=== PATIENT | male | born 1990 | race Caucasian/White ===

== ENCOUNTER → 2022-08-17 10:52 | Outpatient (BNVA) | payer OTHER, SELFPAY | PROVIDERS: Visit Provider Internal Medicine | DX: S29.012A Strain of muscle and tendon of back wall of thorax, initial encounter (principal); X50.0XXA Overexertion from strenuous movement or load, initial encounter | CPT/HCPCS: 99202 ==

== ENCOUNTER → 2024-12-14 09:17 | Outpatient (BNVA) | payer OTHER, SELFPAY | PROVIDERS: Visit Provider Emergency Medicine | DX: M24.811 Other specific joint derangements of right shoulder, not elsewhere classified (principal) | CPT/HCPCS: 73030; 99203 ==

== ENCOUNTER → 2024-12-19 13:24 | Outpatient (BNVA) | payer OTHER, SELFPAY | PROVIDERS: Visit Provider Emergency Medicine | DX: M24.811 Other specific joint derangements of right shoulder, not elsewhere classified (principal) | CPT/HCPCS: 99214 ==

== ENCOUNTER 2025-01-07 08:56 | Outpatient (REF) | payer OTHER, BC, SELFPAY ==
--- NOTE | ~2025-01-07 | MR_ITS ---
EXAMINATION: MR SHOULDER WITHOUT CONTRAST, RIGHT CLINICAL INFORMATION: Shoulder pain COMPARISON: X-ray 12/14/2024 TECHNIQUE: MRI of the shoulder without contrast was performed on a high-field scanner. FINDINGS: ROTATOR CUFF: Supraspinatus: Mild tendinosis Infraspinatus: Mild-moderate tendinosis Teres minor: Intact. Subscapularis: Mild distal tendinosis with possible small partial tear.. No muscle atrophy or fatty infiltration. BICEPS: Intact CORACOACROMIAL ARCH: The undersurface of the acromion is flat with no subacromial spur. Mild acromioclavicular arthritis. Trace subacromial subdeltoid bursal fluid. LABRUM/CAPSULE: Mild T2 signal in the superior labrum; subjacent 0.5 cm para labral cyst. Findings raise concern for possible undisplaced labral tear in this region. GLENOHUMERAL JOINT/MARROW: No fracture. No aggressive marrow replacing lesion. No high-grade chondral loss. No significant joint effusion. MR/MR shoulder RT wo con IMPRESSION: * Mild supraspinatus tendinosis. Mild-moderate infraspinatus tendinosis. * Mild distal subscapularis tendinosis with possible small partial tear. * 0.5 cm para labral cyst associated with the superior labrum, raising concern for possible undisplaced superior labral tear.. Electronically signed by: Fuentes Kim MD 01/08/2025 08:03 AM [facility]
--- OUTSIDE RECORDS SUMMARY | 2025-01-07 09:02 | XMS_ITS | Clinical Summary ---
Author Organization [facility] [address] [facility] Address [address] [place] [address] Phone Care Team Providers Care Guest Experience Specialist Name Role Phone Hu Ramsay MD Primary Care Provider [phone] Allergies No known active allergies Medications ibuprofen (ADVIL,MOTRIN) 600 mg tablet TAKE 1 TAB WITHIN THE FIRST 2 HRS AFTER SURGERY, THEN TAKE 1 TABLET EVERY 6 HRS NEEDED FOR PAIN 04/16/2023 Active losartan (Cozaar) 50 mg tablet Take 1 tablet (50 mg total) by mouth 1 (one) time each day. 90 each 1 10/16/2024 Active Active Problems Problem Noted Date Diagnosed Date Neoplasm of uncertain behavior of skin Overview (10/16/2024): Lesion removed Demos approx 2017. Precancerous . 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, left 04/23/2020 Obesity (BMI 30.0-34.9) 12/20/2007 Encounters Date Type Department Care Team Description 10/16/2024 11:30 AM EDT Office Visit Adult Medicine - [place] [address] [place] [address] Hu Ramsay MD Routine general medical examination at a health care facility (Primary Dx); Hypertension, unspecified type; Screening, lipid; Need for zygweekpyz-sbyeznw-pr rtussis (Tdap) vaccine; Encounter for hepatitis C screening test for low risk patient; Neoplasm of uncertain behavior of skin; Elevated serum creatinine from Last 3 Months Immunizations Immunization Administration Dates Next Due Meningococcal MCV4P 12/20/2007 Td Tetanus diptheria (Tdvax) 7yo and older 08/04 Tdap Tetanus diptheria acell ular pertussis (Boostrix; Adacel) 7yo and older 10/16/2024,05/26/2011 Surgical History Surgery Date Site/Laterality Comments OTHER SURGICAL HISTORY PROCEDURE: DENIES PREVIOUS SURGERY Medical History Medical History Date Comments Varicella without mention of complication 1995 DX:Varicella without mention of complication Herpes zoster without mentio n of complication DX:Herpes zoster without men tion of complication Contact dermatitis and other eczema, due to unspecified cause DX:Contact dermatitis and ot her eczema, due to unspecified cause Foreign body in cornea 03/29/06 DX:Foreig n body in cornea; COMMENT: LEFT Family History Medical History Relation Name Comments Other cancer Maternal Grandfather Hypertension Mother Diabetes Paternal Grandmother Relation Name Status Comments Father Alive 1964 Maternal Grandfather Mother Alive 1963 Paternal Grandmother Sister 1 Alive 1985, latasha Sister 2 Alive 1985, pati Sister 3 Alive 1994, bjorn Social History Tobacco Use Types Packs/Day Years Used Date Smoking Tobacco: Never Smokeless Tobacco: Never Tobacco Cessation:Counseling Given: Not Answered Alcohol Use Standard Drinks/Week Comments Never 0 (1 standard drink = 0.6 oz pur e alcohol) Housing Instability Answer Date Recorde d Are you worried that in the next 2 months you may not have stable housing? No 06/07/2024 Food Access & Nutrition Answer Date Rec orded Do you have access to a vari ety of food including fruits and vegetables? Yes 06/07/2024 Access to Healthcare Answer Date Record ed Within the last 3 months, ho w many times did you visit the emergency department for your medical care? 0 06/07/2024 Health Literacy Answer Date Recorded How often do you need to hav e someone help you when you read instructions, pamphlets, or other written material from your doctor or pharmacy? Never 06/07/2024 Caregiver: How often do you need to have someone help you when you read instructions, pamphlets, or other written material from your doctor or pharmacy? Not on file 06/07/2024 Financial Risk Answer Date Recorded How hard is it for you to pa y for the very basics like food, housing, medical care, and air conditioning / heating? Not very hard 06/07/2024 Transportation Answer Date Recorded Has the lack of transportati on kept you from meetings, work, or from getting things needed for daily living? No Has the lack of transportati on kept you from medical appointments or from getting medications? No 06/07/2024 Social Isolation Answer Date Recorded How often do you feel lonely or isolated from th ose around you? Never 06/07/2024 Food Risk Answer Date Recorded Within the past 12 months we worried whether our food would run out before we got money to buy more. Never true 06/07/2024 Within the past 12 months th e food we bought just didn't last and we didn't have money to get more. Never true 06/07/2024 Dependent Care Answer Date Recorded Do you need help finding or paying for care for your loved ones. For example, child development consultant or elderly care for an older adult? No 06/07/2024 Education Answer Date Recorded Do you think completing more education or training, like finishing a GED, going to college, or learning a trade, would be helpful for you? No 06/07/2024 Employment and Income Answer Date Recor ded During the last four weeks, have you been actively looking for work? No 06/07/2024 Living Situation Answer Date Recorded What is your living situation? Unrecognized valu e 06/07/2024 Sex and Gender Information Value Date Recorded Sex Assigned at Not on file Legal Sex Male 2:49 AM EST Gender Identity Not on file Sexual Orientation Not on file Obstetrics History Last Filed Vital Signs Vital Sign Reading Time Taken Comments Blood Pressure 130/83 10/16/2024 11:28 AM EDT Pulse 98 10/16/2024 11:28 AM EDT Temperature 36.4 C (97.6 F) 10/16/2024 11:28 AM EDT Respiratory Rate 16 04/05/2024 8:55 AM EST Oxygen Saturation 98% 04/05/2024 8:55 AM EST Inhaled Oxygen Concentration - - Weight 103 kg (227 lb) 10/16/2024 11:28 AM EDT Height 177.8 cm (5' 10 ) 10/16/2024 11:28 AM EDT Body Mass Index 32.57 10/16/2024 11:28 AM EDT Plan of Treatment Health Maintenance Due Date Last Done Comments Hepatitis B Vaccines (1 of 3 - 19+ 3-dose series) 08/03/2007 HPV Vaccines (1 - 3-dose SCD M series) 08/03/2015 HIV Screening 02/08/2022 Depression Screening 03/08/2024 COVID-19 Vaccine (1 - 2023-2 5 season) 2024 Influenza Vaccine (#1) 2024 Social Influencers of Health Screening 06/07/2025 06/07/2024 Hypertension/CHF/CAD Annual BMP Blood Test 10/16/2025 10/16/2024 Cholesterol Screening (Lipid Panel) 10/16/2029 10/16/2024 DTaP,Tdap,and Td Vaccines (4 - Td or Tdap) 10/16/2034 10/16/2024, 05/26/2011, 08/04/2000 RSV Immunization Adult Patients (1 - 1-dose 75+ series) 08/03/2063 Meningococcal ACWY Vaccine Aged Out 12/20/2007 N o longer eligible based on patient's age to complete this topic Hepatitis C Screening Completed 10/16/2024 HIB Vaccines Aged Out No longer eligi ble based on patient's age to complete this topic Hepatitis A Vaccines Aged Out No long er eligible based on patient's age to complete this topic IPV Vaccines Aged Out No longer eligi ble based on patient's age to complete this topic MMR Vaccines Aged Out No longer eligi ble based on patient's age to complete this topic Meningococcal B Vaccine Aged Out No l onger eligible based on patient's age to complete this topic Pneumococcal Vaccine: Pediatrics (0 to 5 Years) and At-Risk Patients (6 to 49 Years) Aged Out No longer eligible b ased on patient's age to complete this topic RSV Immunization Patients Under 20 months Aged Out No longer eligible b ased on patient's age to complete this topic Varicella Vaccines Aged Out No longer eligible based on patient's age to complete this topic Procedures Procedure Name Priority Date/Time Associated Diagnosis Comments CBC WITH AUTO DIFFERENTIAL Routine 10/16/2024 12:02 PM EDT Hypertension, unspecified type HEPATITIS C ANTIBODY Routine 10/16/2024 12:02 PM EDT Encounter for hepatitis C screening test for low risk patient LIPID PANEL WITH REFLEX TO DIRECT LDL Routine 10/16/2024 12:02 PM EDT Screening, lipid COMPREHENSIVE METABOLIC PANEL Routine 10/16/2024 12:02 PM EDT Hypertension, unspecified type CBC AND DIFFERENTIAL Routine 10/16/2024 12:02 PM EDT Hypertension, unspecified type from Last 3 Months Results * Hepatitis C antibody (10/16/2024 12:02 PM EDT) Pathologist [facility] [place] Hepatitis C Antibody Negative Negative LAB CHEMISTRY METHOD 10/16/2024 5:08 PM EDT [facility] Blood Venous blood specimen / Unknown Venipuncture / Unknown 10/16/2024 12:02 PM EDT 10/16/2024 12:02 PM EDT C Allen Ramsay MD LAB BLOOD ORDERABLES Final Res ult [facility] [address] [place] [address], [place] [phone] * (ABNORMAL) Lipid panel with reflex to direct LDL (10/16/2024 12:02 PM EDT) [facility] Cholesterol 165 0 - 200 mg/dL LAB CHEMISTRY METHOD 10/16/2024 3:24 PM EDT [facility] Triglycerides 268(H) 0 - 150 mg/dL LAB CHEMISTRY METHOD 10/16/2024 3:24 PM EDT [facility] HDL 38(L) >=40 mg/dL LAB CHEMISTRY METHOD 10/16/2024 3:24 PM EDT [facility] LDL Calculated 73 0 - 100 mg/dL LAB CHEMISTRY METHOD 10/16/2024 3:24 PM EDT [facility] Comment:Estimated LDL Calcul ated using equation: Total cholesterol - HDL cholesterol - (Triglycerides/5) VLDL Cholesterol Adelso 53.6 mg/dL LAB CHEMISTRY METHOD 10/16/2024 3:24 PM EDT [facility] Non HDL Chol. (LDL+VLDL) 127 <145 mg/dL LAB CHEMISTRY METHOD 10/16/2024 3:24 PM EDT [facility] Chol/HDL Ratio 4.3 0.0 - 4.4 LAB CHEMISTRY METHOD 10/16/2024 3:24 PM EDT [facility] Blood Venous blood specimen / Unknown Venipuncture / Unknown 10/16/2024 12:02 PM EDT 10/16/2024 12:[address] [facility] Allen Ramsay MD LAB BLOOD ORDERABLES Final Res ult [facility] [address] [place] [address], [place] [phone] * (ABNORMAL) CBC auto differential (10/16/2024 12:02 PM EDT) WBC 7.1 4.8 - 10.8 K/mcL LAB HEMETOLOGY METHOD 10/16/2024 1:58 PM EDT [facility] RBC 5.10 4.50 - 5.50 M/mcL LAB HEMETOLOGY METHOD 10/16/2024 1:58 PM EDT [facility] Hemoglobin 14.1 13.5 - 17.5 g/dL LAB HEMETOLOGY METHOD 10/16/2024 1:58 PM EDT [facility] Hematocrit 40.2(L) 42.0 - 54.0 % LAB HEMETOLOGY METHOD 10/16/2024 1:58 PM EDT [facility] MCV 79.6 79.0 - 98.0 FL LAB HEMETOLOGY METHOD 10/16/2024 1:58 PM EDT [facility] MCH 27.9 27.0 - 32.0 pcg LAB [facility] M[facility]C 35.1 32.0 - 37.0 g/dL LAB HEMETOLOGY METHOD 10/16/2024 1:58 PM [facility] RDW 12.4 11.0 - 15.0 % LAB HEMETOLOGY METHOD 10/16/2024 1:58 PM [facility] Platelets 252 130 - 400 K/mcL LAB HEMETOLOGY METHOD 10/16/2024 1:58 PM [facility] MPV 9.3 7.0 - 11.0 FL LAB HEMETOLOGY METHOD 10/16/2024 1:58 PM [facility] NRBC 0.0 <1.0 % LAB HEMETOLOGY METHOD 10/16/2024 1:58 PM [facility] NRBC Absolute 0.00 <0.10 K/mcL LAB HEMETOLOGY METHOD 10/16/2024 1:58 PM [facility] Neutrophils Relative 66.1 % LAB HEMETOLOGY METHOD 10/16/2024 1:58 PM [facility] Lymphocytes Relative 24.2 % LAB HEMETOLOGY METHOD 10/16/2024 1:58 PM [facility] Monocytes Relative 7.8 % LAB HEMETOLOGY METHOD 10/16/2024 1:58 PM [facility] Eosinophils Relative 1.3 % LAB HEMETOLOGY METHOD 10/16/2024 1:58 PM [facility] Basophils Relative 0.3 % LAB HEMETOLOGY METHOD 10/16/2024 1:58 PM [facility] Immature Granulocytes Relative 0.3 % LAB HEMETOLOGY METHOD 10/16/2024 1:58 PM [facility] Neutrophils Absolute 4.72 1.50 - 7.00 K/mcL LAB HEMETOLOGY METHOD 10/16/2024 1:58 PM EDT [facility] Lymphocytes Absolute 1.73 1.00 - 5.00 K/mcL LAB HEMETOLOGY METHOD 10/16/2024 1:58 PM EDT [facility] Monocytes Absolute 0.56 0.20 - 1.00 K/mcL LAB HEMETOLOGY METHOD 10/16/2024 1:58 PM EDT [facility] Eosinophils Absolute 0.09 0.00 - 0.50 K/mcL LAB HEMETOLOGY METHOD 10/16/2024 1:58 PM EDT [facility] Basophils Absolute 0.02 0.00 - 0.20 K/mcL LAB HEMETOLOGY METHOD 10/16/2024 1:58 PM EDT [facility] Immature Granulocytes Absolute 0.02 0.00 - 0.03 K/mcL LAB HEMETOLOGY METHOD 10/16/2024 1:58 PM EDT [facility] Blood Venous blood specimen / Unknown Venipuncture / Unknown 10/16/2024 12:02 PM EDT 10/16/2024 12:02 PM EDT C Allen Ramsay MD LAB BLOOD ORDERABLES Final Res ult [facility] [address] [place] [address], * (ABNORMAL) Comprehensive metabolic panel (10/16/2024 12:02 PM EDT) Sodium 140 133 - 145 mmol/L LAB CHEMISTRY METHOD 10/16/2024 3:24 PM EDT [facility] Potassium 3.9 3.5 - 5.5 mmol/L LAB CHEMISTRY METHOD 10/16/2024 3:24 PM [facility] Chloride 110 96 - 110 mmol/L LAB CHEMISTRY METHOD 10/16/2024 3:24 PM EDT [facility] CO2 26 21 - 32 mmol/L LAB CHEMISTRY METHOD 10/16/2024 3:24 PM [facility] Anion Gap 4 3 - 11 LAB CHEMISTRY METHOD 10/16/2024 3:24 PM [facility] Glucose 90 70 - 100 mg/dL LAB CHEMISTRY METHOD 10/16/2024 3:24 PM [facility] BUN 18 5 - 25 mg/dL LAB CHEMISTRY METHOD 10/16/2024 3:24 PM [facility] Creatinine 1.41(H) 0.70 - 1.30 mg/dL LAB CHEMISTRY METHOD 10/16/2024 3:24 PM [facility] eGFR 66 >=60 mL/min/1. 73m2 LAB CHEMISTRY METHOD 10/16/2024 3:24 PM [facility] Comment:Calculation based on the Chronic Kidney Disease Epidemiology Collaboration (CKD-EPI) equation refit without adjustment for race. BUN/Creatinine Ratio 12.8 LAB CHEMISTRY METHOD 10/16/2024 3:24 PM [facility] Calcium 9.1 8.5 - 10.5 mg/dL LAB CHEMISTRY METHOD 10/16/2024 3:24 PM [facility] AST (SGOT) 26 10 - 42 unit/L LAB CHEMISTRY METHOD 10/16/2024 3:24 PM [facility] ALT (SGPT) 34 10 - 60 unit/L LAB CHEMISTRY METHOD 10/16/2024 3:24 PM [facility] Alkaline Phosphatase 75 42 - 121 unit/L LAB CHEMISTRY METHOD 10/16/2024 3:24 PM [facility] Total Protein 8.0 6.0 - 8.0 g/dL LAB CHEMISTRY METHOD 10/16/2024 3:24 PM [facility] Albumin 4.4 3.2 - 5.0 g/dL LAB CHEMISTRY METHOD 10/16/2024 3:24 PM [facility] Total Bilirubin 0.8 0.0 - 1.4 mg/dL LAB CHEMISTRY METHOD 10/16/2024 3:24 PM EDT [facility] Blood Venous blood specimen / Unknown Venipuncture / Unknown 10/16/2024 12:02 PM EDT 10/16/2024 12:02 PM EDT C Allen Ramsay MD LAB BLOOD ORDERABLES Final Res ult [facility] [address] [place] [address], [place] [phone] from Last 3 Months Insurance [facility] Care Teams Guest Experience Specialist Relationship Specialty Start Date End Date Hu Ramsay MD [address] [place] [id number] PCP - General Internal Medicine 07/03/20
--- OUTSIDE RECORDS SUMMARY | 2025-01-07 09:02 | XMS_ITS ---
Author Name [facility] Organization Unknown Care Team Organization Name Specialty Phone Email Start Date End Da te [facility] Ramsay Primary Care 07/13/2022 10/25/2023 [facility] Termed, PROVIDER Primary Care 01/13/202210/06
--- OUTSIDE RECORDS SUMMARY | 2025-01-07 09:02 | XMS_ITS | Clinical Summary ---
Author Organization [facility] Address [address] [place] [address] Care Team Providers Care Armature Winder Helper Repair Name Role Phone Pcp, No Primary Care Provider Unavailabl e Allergies No known active allergies Medications No known medications Social History Tobacco Use Types Packs/Day Years Used Date Smoking Tobacco: Never Smokeless Tobacco: Never Sex and Gender Information Value Date Recorded Sex Assigned at Not on file Legal Sex Male 5:30 PM EDT Gender Identity Not on file Sexual Orientation Not on file Last Filed Vital Signs Vital Sign Reading Time Taken Comments Blood Pressure 138/93 11/30/2019 6:07 PM EDT Pulse 78 11/30/2019 6:07 PM EDT Temperature 37.1 C (98.7 F) 11/30/2019 6:07 PM EDT Respiratory Rate - - Oxygen Saturation 99% 11/30/2019 6:07 PM EDT Inhaled Oxygen Concentration - - Weight 95.3 kg (210 lb) 11/30/2019 6:07 PM EDT Height 177.8 cm (5' 10 ) 11/30/2019 6:07 PM EDT Body Mass Index 30.13 11/30/2019 6:07 PM EDT Plan of Treatment Health Maintenance Due Date Last Done Comments Hepatitis C Virus Screening 1988 HIV Screening 2001 DTaP/Tdap/Td Vaccines (1 - Tdap) 08/03/2007 Hepatitis B Vaccines (1 of 3 - 19+ 3-dose series) 08/03/2007 Influenza Vaccine 10/06/2024 COVID-19 Vaccine ( - 2023-2 5 season) 2024 HPV Vaccines (No Doses Required) Completed Pneumococcal Vaccine: Pediat aric (0-5 Years) and At-Risk Patients (6 to 49 Years) Aged Out No longer eligible b ased on patient's age to complete this topic Insurance [facility] Care Teams Armature Winder Helper Repair Relationship Specialty Start Date End Date Pcp, No PCP - General General Medicine 11/16/19
== END 2025-01-07 08:57 | disposition home or self-care (01) ==
LOC: HO.MRI 08:56
PROVIDERS: Visit Provider Emergency Medicine
DX: M24.811 Other specific joint derangements of right shoulder, not elsewhere classified (principal)
CPT/HCPCS: 73221

== ENCOUNTER → 2025-01-07 09:04 | Outpatient (BNV) | payer OTHER, SELFPAY | PROVIDERS: Visit Provider Radiology Diagnostic Ultrasound | DX: M75.21 Bicipital tendinitis, right shoulder (principal) | CPT/HCPCS: 73221 ==

== ENCOUNTER 2025-01-11 09:09 | Outpatient (AMB) | payer OTHER, SELFPAY ==
--- NOTE | 2025-01-11 09:23 | A.OFFVIS_ITS ---
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 This is due to a work related injury from 12/13/2024. 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 He went to prevent a fall and was bumped into be another nurse and also hit the stretcher with the right shoulder. He had an immediate onset of pain int he right shoulder. He was seen at the [facility] the day after injury who ordered physical therapy, which is being done at [facility]. His pain is felt only with lateral raises and with other various movments. He has been guarding his shoulder by keeping is stationary. Takes ibuprofen PRN for pain which does help. 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 This is due to a work related injury from 12/13/2024. 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 He went to prevent a fall and was bumped into be another nurse and also hit the stretcher with the right shoulder. He had an immediate onset of pain int he right shoulder. He was seen at the [facility] the day after injury who ordered physical therapy, which is being done at [facility]. His pain is felt only with lateral raises and with other various movments. He has been guarding his shoulder by keeping is stationary. Takes ibuprofen PRN for pain which does help. The pain has been improving but it is still not normal. He has pain when he abducts the right shoulder. 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 His motion is grossly intact. He has about 45 degrees of external rotation at 0 and can abduct to 90. One hundred and 30 overhead abduction with pain in the mid arc of abduction. 150 degrees of forward flexion. Negative belly press. Negative lift-off. Positive Lamb and negative Neer. 4+/5 empty can Vital Signs: BMI result Body Mass Index 32.3 Results Reviewed Results Reviewed: I personally reviewed the MR images. Mild supraspinatus tendinosis. Mild-moderate infraspinatus tendinosis. * Mild distal subscapularis tendinosis with possible small partial tear. * 0.5 cm para labral cyst associated with the superior labrum, raising concern for possible undisplaced superior labral tear.. 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 He should be continuing physical therapy and NSAIDs and avoid overhead lifting. His MRI and exam are consistent with rotator cuff tendinosis/tendonitis. There is a small paralabral cyst which does not appear to be relevant given his presentation. At this time I recommend out of work. He will follow up with me in 6 weeks. At that time I hope to resume light duty. Orders: Orders PT Evaluation and Treatment Today M67.819 - Other specified disorders of synovium and tendon, unspecified shoulder Coding Level of Care Code New Pt Level 3 (12720) Diagnoses Tendinosis of rotator cuff M67.819
[2025-01-11 09:30] VITALS: BMI 32.3
--- OUTSIDE RECORDS SUMMARY | 2025-01-11 10:04 | XMS_ITS | Clinical Summary ---
Author Organization [facility] Address [address] [place] [address] Care Team Providers Care Butt Sawyer Name Role Phone Pcp, No Primary Care [...] complete this topic Insurance [facility] Care Teams Butt Sawyer Relationship Specialty Start Date End Date Pcp, No PCP - General General Medicine 11/16/19
--- OUTSIDE RECORDS SUMMARY | 2025-01-11 10:04 | XMS_ITS | Clinical Summary ---
Author Organization [facility] 230 [facility] Address [address] [place] [address] Phone Care Team Providers Care Supervisor Wheel Shop Name Role Phone Hu Ramsay MD Primary Care Provider Allergies No known active allergies Medications ibuprofen [...] AM EDT Office Visit Adult Medicine - [facility] [address] [place] [address] Hu Ramsay MD Routine general medical examination at a health care facility (Primary Dx); Hypertension, unspecified type; Screening, lipid; Need for qyerarryrt-eyuipur-zb rtussis (Tdap) vaccine; Encounter for hepatitis C [...] care for your loved ones. For example, manager child or elderly care for an older adult? [...] C antibody (10/16/2024 12:02 PM EDT) Pathologist [facility] Hepatitis C Antibody Negative Negative LAB CHEMISTRY METHOD 10/16/2024 5:08 PM EDT [facility] Blood Venous blood specimen / Unknown Venipuncture / Unknown 10/16/2024 12:02 PM EDT 10/16/2024 12:02 PM EDT C Allen Ramsay MD LAB BLOOD ORDERABLES Final Res ult [facility] [address] [place] [address], [place] [phone] * (ABNORMAL) Lipid panel with reflex to direct LDL (10/16/2024 12:02 PM EDT) [facility] Cholesterol 165 0 - 200 mg/dL LAB CHEMISTRY METHOD 10/16/2024 3:24 PM EDT [facility] Triglycerides 268(H) 0 - 150 mg/dL LAB CHEMISTRY METHOD 10/16/2024 3:24 PM EDT [facility] HDL 38(L) >=40 mg/dL LAB CHEMISTRY METHOD 10/16/2024 3:24 PM EDT [facility] LDL Calculated 73 0 - 100 mg/dL LAB CHEMISTRY METHOD 10/16/2024 3:24 PM EDT [facility] Comment:Estimated LDL Calcul ated using equation: Total cholesterol - HDL cholesterol - (Triglycerides/5) VLDL Cholesterol Adelso 53.6 mg/dL LAB CHEMISTRY METHOD 10/16/2024 3:24 PM EDT [facility] Non HDL Chol. (LDL+VLDL) 127 <145 mg/dL LAB CHEMISTRY METHOD 10/16/2024 3:24 PM EDT [facility] Chol/HDL Ratio 4.3 0.0 - 4.4 LAB CHEMISTRY METHOD 10/16/2024 3:24 PM EDT [facility] Blood Venous blood specimen / Unknown Venipuncture / Unknown 10/16/2024 12:02 PM EDT 10/16/2024 12:02 PM EDT [facility] [place] LAB BLOOD ORDERABLES Final Res ult [facility] [address] [place] [address], [place] [phone] * (ABNORMAL) CBC auto differential (10/16/2024 12:02 PM EDT) WBC 7.1 4.8 - 10.8 K/mcL LAB HEMETOLOGY METHOD 10/16/2024 1:58 PM EDT [facility] RBC 5.10 4.50 - 5.50 M/mcL LAB HEMETOLOGY METHOD 10/16/2024 1:58 PM EDT [facility] Hemoglobin 14.1 13.5 - 17.5 g/dL LAB HEMETOLOGY METHOD 10/16/2024 1:58 PM EDT [facility] Hematocrit 40.2(L) 42.0 - 54.0 % LAB HEMETOLOGY METHOD 10/16/2024 1:58 PM EDT [facility] MCV 79.6 79.0 - 98.0 FL LAB HEMETOLOGY METHOD 10/16/2024 1:58 PM EDT [facility] MCH 27.9 27.0 - 32.0 pcg LAB HEMETOLOGY METHOD 10/[facility]24 [facility] MCHC 35.1 32.0 - 37.0 g/dL LAB HEMETOLOGY METHOD 10/16/2024 1:58 PM [facility] RDW 12.4 11.0 - 15.0 % LAB HEMETOLOGY METHOD 10/16/2024 1:58 PM [facility] Platelets 252 130 - 400 K/mcL LAB HEMETOLOGY METHOD 10/16/2024 1:58 PM [facility] MPV 9.3 7.0 - 11.0 FL LAB HEMETOLOGY METHOD 10/16/2024 1:58 PM [facility] NRBC 0.0 <1.0 % LAB HEMETOLOGY METHOD 10/16/2024 1:58 PM [facility] NRBC Absolute 0.00 <0.10 K/mcL LAB HEMETOLOGY METHOD 10/16/2024 1:58 PM [facility] Neutrophils Relative 66.1 % LAB HEMETOLOGY METHOD 10/16/2024 1:58 PM [facility] Lymphocytes Relative 24.2 % LAB HEMETOLOGY METHOD 10/16/2024 1:58 PM [facility] Monocytes Relative 7.8 % LAB HEMETOLOGY METHOD 10/16/2024 1:58 PM [facility] Eosinophils Relative 1.3 % LAB HEMETOLOGY METHOD 10/16/2024 1:58 PM [facility] Basophils Relative 0.3 % LAB HEMETOLOGY METHOD 10/16/2024 1:58 PM [facility] Immature Granulocytes Relative 0.3 % LAB HEMETOLOGY METHOD 10/16/2024 1:58 PM [facility] Neutrophils Absolute 4.72 1.50 - 7.00 K/mcL LAB HEMETOLOGY METHOD 10/16/2024 1:58 PM EDT [facility] Lymphocytes Absolute 1.73 1.00 - 5.00 K/mcL LAB HEMETOLOGY METHOD 10/16/2024 1:58 PM EDT [facility] Monocytes Absolute 0.56 0.20 - 1.00 K/mcL LAB HEMETOLOGY METHOD 10/16/2024 1:58 PM EDT [facility] Eosinophils Absolute 0.09 0.00 - 0.50 K/mcL LAB HEMETOLOGY METHOD 10/16/2024 1:58 PM EDT [facility] Basophils Absolute 0.02 0.00 - 0.20 K/mcL LAB HEMETOLOGY METHOD 10/16/2024 1:58 PM EDT [facility] Immature Granulocytes Absolute 0.02 0.00 - 0.03 K/mcL LAB HEMETOLOGY METHOD 10/16/2024 1:58 PM EDT [facility] Blood Venous blood specimen / Unknown Venipuncture / Unknown 10/16/2024 12:02 PM EDT 10/16/2024 12:02 PM EDT C Allen Ramsay MD LAB BLOOD ORDERABLES Final Res ult [facility] [address] [place] [address], * (ABNORMAL) Comprehensive metabolic panel (10/16/2024 12:02 PM EDT) Sodium 140 133 - 145 mmol/L LAB CHEMISTRY METHOD 10/16/2024 3:24 PM EDT [facility] Potassium 3.9 3.5 - 5.5 mmol/L LAB CHEMISTRY METHOD 10/16/2024 3:24 PM [facility] Chloride 110 96 - 110 mmol/L LAB CHEMISTRY METHOD 10/16/2024 3:24 PM EDT [facility] CO2 26 21 - 32 mmol/L LAB CHEMISTRY METHOD 10/16/2024 3:24 PM [facility] Anion Gap 4 3 - 11 LAB CHEMISTRY METHOD 10/16/2024 3:24 PM [facility] Glucose 90 70 - 100 mg/dL LAB CHEMISTRY METHOD 10/16/2024 3:24 PM [facility] BUN 18 5 - 25 mg/dL LAB CHEMISTRY METHOD 10/16/2024 3:24 PM [facility] Creatinine 1.41(H) 0.70 - 1.30 mg/dL LAB CHEMISTRY METHOD 10/16/2024 3:24 PM [facility] eGFR 66 >=60 mL/min/1. 73m2 LAB CHEMISTRY METHOD 10/16/2024 3:24 PM [facility] Comment:Calculation based on the Chronic Kidney Disease Epidemiology Collaboration (CKD-EPI) equation refit without adjustment for race. BUN/Creatinine Ratio 12.8 LAB CHEMISTRY METHOD 10/16/2024 3:24 PM [facility] Calcium 9.1 8.5 - 10.5 mg/dL LAB CHEMISTRY METHOD 10/16/2024 3:24 PM [facility] AST (SGOT) 26 10 - 42 unit/L LAB CHEMISTRY METHOD 10/16/2024 3:24 PM [facility] ALT (SGPT) 34 10 - 60 unit/L LAB CHEMISTRY METHOD 10/16/2024 3:24 PM [facility] Alkaline Phosphatase 75 42 - 121 unit/L LAB CHEMISTRY METHOD 10/16/2024 3:24 PM [facility] Total Protein 8.0 6.0 - 8.0 g/dL LAB CHEMISTRY METHOD 10/16/2024 3:24 PM [facility] Albumin 4.4 3.2 - 5.0 g/dL LAB CHEMISTRY METHOD 10/16/2024 3:24 PM [facility] Total Bilirubin 0.8 0.0 - 1.4 mg/dL LAB CHEMISTRY METHOD 10/16/2024 3:24 PM EDT [facility] Blood Venous blood specimen / Unknown Venipuncture / Unknown 10/16/2024 12:02 PM EDT 10/16/2024 12:02 PM EDT C Allen Ramsay MD LAB BLOOD ORDERABLES Final Res ult [facility] [address] [place] [address], [place] [phone] from Last 3 Months Insurance [facility] Care Teams Supervisor Wheel Shop Relationship Specialty Start Date End Date Hu Ramsay MD [address] [place] [phone] PCP - General Internal Medicine 07/03/20
== END 2025-01-11 09:55 | disposition home or self-care (01) ==
LOC: HO.HOS 09:10
PROVIDERS: PCP Pediatrics; Visit Provider Orthopaedic Surgery
DX: M67.811 Other specified disorders of synovium, right shoulder (principal)
CPT/HCPCS: 99203

== ENCOUNTER → 2025-01-11 09:09 | Outpatient (BNVA) | payer OTHER, BC, SELFPAY | PROVIDERS: PCP Pediatrics; Visit Provider Orthopaedic Surgery | DX: M67.811 Other specified disorders of synovium, right shoulder (principal) | CPT/HCPCS: 99202 ==

== ENCOUNTER 2025-02-22 08:25 | Outpatient (AMB) | payer OTHER, SELFPAY ==
--- NOTE | 2025-02-22 08:32 | MHC.OFFVIS ---
Vital Signs 02/22/25 08:34 Height 5 ft 10 in Weight 225 lb BMI 32.3 Intake Visit Reasons: OV-WC- Right RTC Tendonitis - 01/02/25 Intake Note: Bakari is a 34 year old right hand dominant male who presents today for a follow up of his Right Shoulder RTC Tendonitis. 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 At this time he remains out of work. He has been working with [facility]. Currently he reports that the shoulder is feeling much stronger but he is still having intermittent pain - this pain is felt at random and with lateral raising. He takes Ibuprofen for his pain when it is present, which is helpful. Allergies No Known Allergies Allergy (Verified 01/11/25 09:29) HPI HPI OV-WC- Right RTC Tendonitis - 01/02/25: Details: Bakari is a 34 year old right hand dominant male who presents today for a follow up of his Right Shoulder RTC Tendonitis. 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 At this time he remains out of work. He has been working with [facility] therapy. Currently he reports that the shoulder is feeling much stronger but he is still having intermittent pain - this pain is felt at random and with lateral raising. He takes Ibuprofen for his pain when it is present, which is helpful. HPI Comments Details: Interval History The patient is a 34-year-old male presenting with follow-up for right rotator cuff tendinitis management. The patient reports improvement in shoulder function, noting that the scapula has been worked on during therapy sessions. He still experiences pain upon waking a couple of days a week, which is relieved by ibuprofen. The patient continues to guard the shoulder but acknowledges it is much stronger than before. The injury occurred approximately two months ago, and this is a six-week follow-up since the last visit. The patient has been pushing himself in therapy, aiming to return to work as a transmission systems operator, which requires full shoulder strength. He reports significant improvement, as initially he could not even use a bike, but now he has made substantial progress. The patient is advised to continue with physical therapy focusing on scapular mechanics and to avoid activities that exacerbate pain. Results - MRI: No significant tears noted in the rotator cuff, confirming tendinitis without major structural damage. 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 Right Rotator Cuff Tendinitis Continue physical therapy with a focus on scapular stabilization and strengthening exercises. Advise the patient to avoid activities that cause pain and to gradually increase activity as tolerated. Follow-up in one month to reassess shoulder function and determine readiness to return to work. 2. Scapular Dyskinesis Emphasize exercises targeting scapular mechanics to improve shoulder function and reduce compensatory movements. Monitor progress with physical therapy and adjust exercises as needed to ensure proper scapular positioning. Discussion Notes The patient and clinician discussed the current status of the right rotator cuff tendinitis, noting improvement but acknowledging ongoing pain and weakness. I explained that surgery is not indicated for tendinitis and emphasized the importance of physical therapy focusing on scapular mechanics. The patient expressed a desire to return to work as a transmission systems operator, and the clinician advised waiting until full strength and function are achieved to prevent re-injury.We discussed return to work. He should remain out of work and follow up in 4 weeks. Our goal is to return to work full duty in 4 weeks. Coding Level of Care Code Est Pt Level 3 (47140) Diagnoses Tendinosis of rotator cuff M67.819
[2025-02-22 08:34] VITALS: BMI 32.3
--- OUTSIDE RECORDS SUMMARY | 2025-02-22 08:41 | XMS_ITS | Clinical Summary ---
Author Organization [facility] Address [address] [place] [address] Phone Care Team Providers Care Office Assistance Name Role Phone Hu Ramsay MD Primary Care Provider [phone] Allergies No known active allergies Medications ibuprofen [...] knee, left 04/23/2020 Obesity (BMI 30.0-34.9) 12/20/2007 Immunizations Immunization Administration Dates Next Due Meningococcal [...] Father Alive 1964 Maternal Grandfather Mother Alive 1964 Paternal Grandmother Sister 1 Alive 1985, latasha [...] ed Within the last 3 months, ho toney many times did you visit the emergency [...] for your loved ones. For example, child welfare assistant or elderly care for an older adult? [...] Depression Screening 03/08/2024 COVID-19 Vaccine (1 - 2024-2 6 season) 2024 Influenza Vaccine (#1) 2024 Social [...] Procedure Name Priority Date/Time Associated Diagnosis Comments HEPATITIS C ANTIBODY Routine 10/16/2024 12:02 PM EDT Encounter for hepatitis C screening test for low risk patient COMPREHENSIVE METABOLIC PANEL Routine 10/16/2024 12:02 PM EDT Hypertension, unspecified type LIPID PANEL WITH REFLEX TO DIRECT LDL Routine 10/16/2024 12:02 PM EDT Screening, lipid from Last 3 Months or Most Recently Relevant to Health Maintenance Results * Hepatitis C antibody (10/16/2024 12:02 PM EDT) Hepatitis C Antibody Negative Negative LAB CHEMISTRY METHOD 10/16/2024 5:08 PM EDT [facility] Blood Venous blood specimen / Unknown Venipuncture / Unknown 10/16/2024 12:02 PM EDT 10/16/2024 12:02 PM EDT us C Allen Ramsay MD LAB BLOOD ORDERABLES Final Res ult [facility] [address] [place] [address], [place] [phone] * (ABNORMAL) Lipid panel with reflex to direct LDL (10/16/2024 12:02 PM EDT) Cholesterol 165 0 - 200 mg/dL LAB CHEMISTRY METHOD 10/16/2024 3:24 PM EDT [facility] Triglycerides 268(H) 0 - 150 mg/dL LAB CHEMISTRY METHOD 10/16/2024 3:24 PM EDT [facility] HDL 38(L) >=40 mg/dL LAB CHEMISTRY METHOD 10/16/2024 3:24 PM EDT [facility] LDL Calculated 73 0 - 100 mg/dL LAB CHEMISTRY METHOD 10/16/2024 3:24 PM EDT [facility] Comment:Estimated LDL Calcul ated using equation: Total cholesterol - HDL cholesterol - (Triglycerides/5) VLDL Cholesterol Adelso 53.6 mg/dL LAB CHEMISTRY METHOD 10/16/2024 3:24 PM EDT [facility] Non HDL Chol. (LDL+VLDL) 127 <145 mg/dL LAB CHEMISTRY METHOD 10/16/2024 3:24 PM EDT [facility] Chol/HDL Ratio 4.3 0.0 - 4.4 LAB CHEMISTRY METHOD 10/16/2024 3:24 PM EDT [facility] Blood Venous blood specimen / Unknown Venipuncture / Unknown 10/16/2024 12:02 PM EDT 10/16/2024 12:02 PM EDT us Hu Ramsay MD LAB BLOOD ORDERABLES Final Res ult [facility] [address] [place] [address], [place] [phone] * (ABNORMAL) Comprehensive metabolic panel (10/16/2024 12:02 PM EDT) Sodium 140 133 - 145 mmol/L LAB CHEMISTRY METHOD 10/16/2024 3:24 PM EDT [facility] Potassium 3.9 3.5 - 5.5 mmol/L LAB CHEMISTRY METHOD 10/16/2024 3:24 PM EDT [facility] Chloride 110 96 - 110 mmol/L LAB CHEMISTRY METHOD [facility] CO2 26 21 - 32 mmol/L LAB CHEMISTRY METHOD 10/16/2024 3:24 PM [facility] Anion Gap 4 3 - 11 LAB CHEMISTRY METHOD 10/16/2024 3:24 PM [facility] Glucose 90 70 - 100 mg/dL LAB CHEMISTRY METHOD 10/16/2024 3:24 PM [facility] BUN 18 5 - 25 mg/dL LAB CHEMISTRY METHOD 10/16/2024 3:24 PM [facility] Creatinine 1.41(H) 0.70 - 1.30 mg/dL LAB CHEMISTRY METHOD 10/16/2024 3:[facility] eGFR 66 >=60 mL/min/1. 73m2 LAB CHEMISTRY METHOD 10/16/2024 3:24 PM [facility] Comment:Calculation based on the Chronic Kidney Disease Epidemiology Collaboration (CKD-EPI) equation refit without adjustment for race. BUN/Creatinine Ratio 12.8 LAB CHEMISTRY METHOD 10/16/2024 3:24 PM [facility] Calcium 9.1 8.5 - 10.5 mg/dL LAB CHEMISTRY METHOD 10/16/2024 3:24 PM [facility] AST (SGOT) 26 10 - 42 unit/L LAB CHEMISTRY METHOD 10/16/2024 3:24 PM EDT [facility] ALT (SGPT) 34 10 - 60 unit/L LAB CHEMISTRY METHOD 10/16/2024 3:24 PM EDT [facility] Alkaline Phosphatase 75 42 - 121 unit/L LAB CHEMISTRY METHOD 10/16/2024 3:24 PM EDT [facility] Total Protein 8.0 6.0 - 8.0 g/dL LAB CHEMISTRY METHOD 10/16/2024 3:24 PM EDT [facility] Albumin 4.4 3.2 - 5.0 g/dL LAB CHEMISTRY METHOD 10/16/2024 3:24 PM EDT [facility] Total Bilirubin 0.8 0.0 - 1.4 mg/dL LAB CHEMISTRY METHOD 10/16/2024 3:24 PM EDT [facility] Blood Venous blood specimen / Unknown Venipuncture / Unknown 10/16/2024 12:02 PM EDT 10/16/2024 12:02 PM EDT [facility] Allen Ramsay MD LAB BLOOD ORDERABLES Final Res ult [facility] [address] [place] [address], from Last 3 Months or Most Recently Relevant to Health Maintenance Insurance [facility] Care Teams Office Assistance Relationship Specialty Start Date End Date Hu Ramsay MD [address] [place] [phone] PCP - General Internal Medicine 07/03/20
--- OUTSIDE RECORDS SUMMARY | 2025-02-22 08:41 | XMS_ITS | Clinical Summary ---
Author Organization [facility] Address [address] [place] [address] Care Team Providers Care Director Of Broadcast Name Role Phone Pcp, No Primary Care [...] Influenza Vaccine 10/06/2024 COVID-19 Vaccine ( - 2024-2 6 season) 2024 HPV Vaccines (No Doses Required) Completed Pneumococcal Vaccine: Pediat aric (0-5 Years) and At-Risk Patients (6 to 49 Years) Aged Out No longer eligible b ased on patient's age to complete this topic Insurance [facility] Care Teams Director Of Broadcast Relationship Specialty Start Date End Date Pcp, No PCP - General General Medicine 11/16/19
== END 2025-02-22 09:07 | disposition home or self-care (01) ==
LOC: HO.HOS 08:25
PROVIDERS: PCP Pediatrics; Visit Provider Orthopaedic Surgery
DX: M67.811 Other specified disorders of synovium, right shoulder (principal)
CPT/HCPCS: 99213

== ENCOUNTER → 2025-02-22 08:25 | Outpatient (BNVA) | payer OTHER, BC, SELFPAY | PROVIDERS: PCP Pediatrics; Visit Provider Orthopaedic Surgery | DX: M67.811 Other specified disorders of synovium, right shoulder (principal); M67.813 Other specified disorders of tendon, right shoulder | CPT/HCPCS: 99212 ==